=== PATIENT | female | born 1985 | race Caucasian/White ===

== ENCOUNTER 2017-03-11 13:02 | Emergency (ER) | payer SELFPAY ==
[2017-03-11 13:44] VITALS: TEMP 97.8
--- NOTE | 2017-03-11 13:49 | ED.PDOC ---
History of Present Illness - General Chief Complaint: General Stated Complaint: Dizziness, blurred vision Time Seen by Provider: 03/11/17 13:08 Source: patient, RN notes reviewed, Vital Signs reviewed Exam Limitations: no limitations - History of Present Illness Initial Comments: Patient here with multiple complaints. She reports a couple years ago she had a TV fall on the L side of her head. Did not get a CT scan at that time. Over the past 6 months she reports pressure in the L parietal area of her head with occasional brief sharp pains. She also reports vertigo and problems with her equilibrium that she takes 3 OTC Meclazine for this daily. She is having numbness on her whole R side. She is also having blurry vision that seems to be getting worse. She is c/o frequent, brief (1-5 seconds) shaking episodes. Finally, she feels that she is having a hard time controlling her muscles on the right side. She does not have a PCP and has not seen anyone about these symptoms over the past 6 months that she has been having these symptoms. Timing/Duration: getting worse - over past 6 months Severity: moderate Improving Factors: nothing Worsening Factors: nothing Associated Symptoms: headaches, weakness Allergies/Adverse Reactions: Allergies NO KNOWN ALLERGY Allergy (Verified 03/11/17 13:45) Home Medications: Ambulatory Orders Meclizine HCl [Meclizine 25] 25 mg PO DAILY 03/11/17 Vit W/ Ferrous Fumara [One A Day Womens 28-0.8 & 223 mg] 1 mis PO DAILY 03/11/17 Review of Systems - Review of Systems Constitutional: States: no symptoms reported EENTM: States: no symptoms reported Respiratory: States: no symptoms reported Cardiology: States: no symptoms reported Gastrointestinal/Abdominal: States: no symptoms reported Musculoskeletal: States: see HPI Skin: States: no symptoms reported Neurological: States: see HPI, headache, numbness, tremors, weakness Endocrine: States: no symptoms reported Hematologic/Lymphatic: States: no symptoms reported Past Medical History (General) - Patient Medical History Hx Seizures: No Hx Stroke: No Hx Dementia: No Hx Asthma: No Hx of COPD: No Hx Cardiac Disorders: No Hx Congestive Heart Failure: No Hx Pacemaker: No Hx Hypertension: No Hx Thyroid Disease: No Hx Diabetes: No Hx Gastroesophageal Reflux: No Hx Renal Disease: No Hx Cancer: No Hx of HIV: No Hx Hepatitis C: No Hx MRSA: No Surgical History: cholecystectomy - Vaccination History Hx Tetanus, Diphtheria Vaccination: Yes Hx Influenza Vaccination: No Hx Pneumococcal Vaccination: No Immunizations Up to Date: No - Social History Hx Tobacco Use: No Hx Chewing Tobacco Use: No Hx Alcohol Use: No Hx Substance Use: No Hx Substance Use Treatment: No Hx Depression: No Feels Threatened In Home Enviroment: No Feels Threatened In a Relationship: No Hx Physical Abuse: No Hx Emotional Abuse: No Hx Suspected Abuse: No - Female History Patient is a Female of Child Bearing Age (10 -59 yrs old): Yes Patient : No Expected Date of Delivery:: 01/11/16 Family Medical History - Family History Mother Family History: No Known Living Status: Still Living Physical Exam - Physical Exam General Appearance: Alert, Anxious, No apparent distress, Well Developed, Well Groomed, Well Hydrated, Well Nourished Eye Exam: bilateral normal Ears, Nose, Throat: hearing grossly normal, normal pharynx Neck: non-tender, full range of motion, supple, normal inspection Respiratory: chest non-tender, lungs clear, normal breath sounds, no respiratory distress, no accessory muscle use Cardiovascular/Chest: regular rate, rhythm, no edema, no gallop, no JVD, no murmur Gastrointestinal/Abdominal: normal bowel sounds, non tender, soft Extremity: normal range of motion, non-tender, normal inspection, no pedal edema Neurologic: machinist set up II-XII nml as tested, alert, normal mood/affect, oriented x 3, motor weakness - R leg - with hip flexion, sensory deficit - Decreased sensation to light touch R arm and leg Skin Exam: normal color, warm/dry Progress - Progress Progress: 03/11/17 15:04 Discussed normal results with patient. Given that she is having multiple neurological complaints she needs to follow up with a Neurologist. - Results/Orders Results/Orders: Laboratory Tests 03/11/17 03/11/17 14:08 14:08 WBC 7.0 RBC 4.59 Hgb 13.2 Hct 38.3 MCV 83.5 MCH 28.8 MCHC 34.5 RDW 13.1 Plt Count 222 MPV 7.4 Absolute Neuts (auto) 4.00 Absolute Lymphs (auto) 2.00 Absolute Monos (auto) 0.60 Absolute Eos (auto) 0.20 Absolute Basos (auto) 0.10 Neutrophils % 58.0 Lymphocytes % 29.3 Monocytes % 8.4 Eosinophils % 3.4 Basophils % 0.9 Sodium 140 Potassium 4.0 Chloride 108 Carbon Dioxide 26 Anion Gap 10.0 L BUN 22 H Creatinine 0.75 BUN/Creatinine Ratio 29.3 H Random Glucose 109 H Serum Osmolality 283.3 Calcium 9.0 Total Bilirubin 0.6 AST 16 ALT 13 Alkaline Phosphatase 48 Serum Total Protein 7.6 Albumin 4.2 Globulin 3.4 Albumin/Globulin Ratio 1.2 - EKG/XRAY/CT CT Ordered: Yes - Head: No acute findings Departure - Departure Clinical Impression: Numbness on right side, Blurry vision, bilateral Headache Qualifiers: Headache type: post-traumatic Headache chronicity pattern: chronic headache Intractability: not intractable Qualified Code(s): G44.329 - Chronic post- traumatic headache, not intractable Time of Disposition: 15:06 Disposition: Discharge to Home or Self Care Condition: Good Departure Forms: ED Discharge - Pt. Copy, Patient Portal Self Enrollment Instructions: DI for Headache, DI for Numbness/tingling Diet: resume usual diet Activity: increase activity as tolerated Home Medications: Ambulatory Orders Meclizine HCl [Meclizine 25] 25 mg PO DAILY 03/11/17 Vit W/ Ferrous Fumara [One A Day Womens 28-0.8 & 223 mg] 1 mis PO DAILY 03/11/17 Additional Instructions: Get primary care physician and get referral to Neurologist - can go through [place] for this or a private physician.
--- NOTE | 2017-03-11 14:39 | CT ---
EXAM DESCRIPTION: Head w/Contrast CLINICAL HISTORY: 31 years, Female, L parietal CARBAJAL with blurry vision COMPARISON: None TECHNIQUE: Head CT was performed with IV contrast. This exam was performed according to our departmental dose-optimization program, which includes automated exposure control, adjustment of the mA and/or kV according to patient size and/or use of iterative reconstruction technique. FINDINGS: Sensitivity for detection of intracranial hemorrhage is limited by IV contrast, but no acute intracranial hemorrhage is identified. There is no midline shift or other mass effect. The ventricles and basilar cisterns are well maintained. No posterior fossa lesion. Serna-white matter differentiation is intact. Physiologic vascular enhancement is noted. Visualized paranasal sinuses and orbits are unremarkable. There is no calvarial fracture. IMPRESSION: Negative exam. If symptoms persist or worsen, followup head CT in 24 hr or MRI is recommended. Electronically signed by: Keven Willingham MD 03/11/2017 2:39 PM CDT
[2017-03-11 15:15] VITALS: BP 116/79; O2SAT 95
== END 2017-03-11 15:15 | disposition home or self-care (01) ==
LOC: ER 13:02
DX: G44.329 Chronic post-traumatic headache, not intractable (principal); R20.0 Anesthesia of skin; H53.8 Other visual disturbances

== ENCOUNTER 2018-01-29 17:50 | Emergency (ER) | payer SELFPAY ==
[2018-01-29 18:13] VITALS: BP 133/85; TEMP 97.2; O2SAT 100
--- NOTE | 2018-01-29 18:23 | ED.PDOC ---
History of Present Illness - General Chief Complaint: Behavioral / Psych Stated Complaint: anxiety Time Seen by Provider: 01/29/18 18:08 Source: patient Exam Limitations: no limitations - History of Present Illness Initial Comments: The patient is a 32-year-old female presenting to the emergency room secondary to a feeling of shortness of breath, chest discomfort, tingling in her face and hands while she was driving. This occurred after she had just gotten off the phone and discovered that she did not have insurance to get her LEEP procedure done. The patient has recently lost her to cancer. The patient felt overwhelmed and has been crying. She is also concerned because she is feeling a lump under her right jaw that has been there for a week or so. Her of lymphoma so she is concerned about that. She is feeling better since she arrived here. Timing/Duration: unsure Severity: moderate Improving Factors: nothing Worsening Factors: nothing Associated Symptoms: denies symptoms Allergies/Adverse Reactions: Allergies Narcotics Adverse Reaction (Uncoded 01/29/18 18:06) Home Medications: Ambulatory Orders NK [NK] 01/29/18 Review of Systems - Review of Systems Constitutional: States: no symptoms reported EENTM: States: no symptoms reported Respiratory: States: short of breath Cardiology: States: chest pain Gastrointestinal/Abdominal: States: no symptoms reported Genitourinary: States: no symptoms reported Musculoskeletal: States: no symptoms reported Skin: States: no symptoms reported Neurological: States: anxiety Endocrine: States: no symptoms reported All other Systems: No Change from Baseline Past Medical History (General) - Patient Medical History Hx Seizures: No Hx Stroke: No Hx Dementia: No Hx Asthma: No Hx of COPD: No Hx Cardiac Disorders: No Hx Congestive Heart Failure: No Hx Pacemaker: No Hx Hypertension: No Hx Thyroid Disease: No Hx Diabetes: No Hx Gastroesophageal Reflux: No Hx Renal Disease: No Hx Cancer: Yes - Cervical Hx of HIV: No Hx Hepatitis C: No Hx MRSA: No Surgical History: cholecystectomy - Vaccination History Hx Tetanus, Diphtheria Vaccination: No Hx Influenza Vaccination: No Hx Pneumococcal Vaccination: No - Social History Hx Tobacco Use: No Hx Chewing Tobacco Use: No Hx Alcohol Use: No Hx Substance Use: Yes - Marijuana Hx Substance Use Treatment: No Hx Depression: No Hx Physical Abuse: No Hx Emotional Abuse: No Hx Suspected Abuse: No - Female History Patient is a Female of Child Bearing Age (10 -59 yrs old): Yes - very irregular Patient : No Expected Date of Delivery:: 01/11/16 Family Medical History - Family History Mother Family History: No Known Living Status: Still Living Physical Exam - Physical Exam General Appearance: Alert, Anxious Eye Exam: bilateral normal Ears, Nose, Throat: hearing grossly normal, normal ENT inspection, other - she does have a small anterior submandibular lymph node that appears to be mildly enlarged. Neck: full range of motion, supple Respiratory: lungs clear, normal breath sounds, no respiratory distress, no accessory muscle use Cardiovascular/Chest: normal peripheral pulses, regular rate, rhythm, no edema Peripheral Pulses: radial,right: 2+, radial,left: 2+ Gastrointestinal/Abdominal: non tender, soft Rectal Exam: deferred Back Exam: normal inspection, no CVA tenderness Extremity: normal range of motion, non-tender, normal inspection, no pedal edema , normal capillary refill Neurologic: hiv counselor II-XII nml as tested, alert, oriented x 3 Skin Exam: normal color Comments: Vital Signs - 8 hr 01/29/18 18:02 Temperature 97.2 F L Pulse Rate [ 72 Left Brachial] Respiratory 18 Rate Blood Pressure 133/85 [Left Arm] O2 Sat by Pulse 100 Oximetry Progress - Progress Progress: 01/29/18 18:23 the patient's a 32-year-old female presenting with what is most likely an anxiety attack related to recent stressors. The patient is feeling better after resting for a little while. She also has a mildly enlarged right sided submandibular lymph node which she does need to follow and make sure that it is shrinking over the next month. 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 ER warnings were given. She should follow up with her primary care doctor next week. Keep well hydrated. Departure - Departure Clinical Impression: Submandibular lymphadenopathy, Anxiety attack Disposition: Discharge to Home or Self Care Condition: Fair Departure Forms: ED Discharge - Pt. Copy, Patient Portal Self Enrollment Instructions: Anxiety and Panic Attacks (Alternative Therapy), DI for Lymphadenopathy Diet: regular diet Activity: increase activity as tolerated Referrals: Martinez Alcaraz MD [Primary Care Provider] - 1-2 Weeks Home Medications: Ambulatory Orders NK [NK] 01/29/18 Additional Instructions: the patient's a 32-year-old female presenting with what is most likely an anxiety attack related to recent stressors. The patient is feeling better after resting for a little while. She also has a mildly enlarged right sided submandibular lymph node which she does need to follow and make sure that it is shrinking over the next month. 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 ER warnings were given. She should follow up with her primary care doctor next week. Keep well hydrated.
== END 2018-01-29 18:36 | disposition home or self-care (01) ==
LOC: ER 17:50
DX: R59.0 Localized enlarged lymph nodes (principal); F41.0 Panic disorder [episodic paroxysmal anxiety]; Z85.41 Personal history of malignant neoplasm of cervix uteri

== ENCOUNTER 2018-04-30 11:48 | Emergency (ER) | payer SELFPAY ==
[2018-04-30 12:09] VITALS: O2SAT 98
[2018-04-30] MEDS ORDERED: MORPHINE SULFATE INJ 10 MG/ML VIAL IV ONE ×2 (12:45→16:06)
[2018-04-30] MEDS ORDERED: diphenhydrAMINE HCL 50 MG/ML VIAL ONE (13:29)
[2018-04-30] MEDS ORDERED: diphenhydrAMINE HCL 50 MG/ML VIAL IV ONE (13:40)
--- NOTE | 2018-04-30 13:59 | ED.PDOC ---
History of Present Illness - General Chief Complaint: APPEALS ANALYST Problem Stated Complaint: rt lower quad pain. Vag bleeding Time Seen by Provider: 04/30/18 12:16 Source: patient Exam Limitations: no limitations - History of Present Illness Initial Comments: THIS AM BLOWER BLAST FURNACE, 7/10 PAIN, RLQ. BLOOD AND TISSUE EXTRUDED FROM VAGINA. LMP 4 D AGO. HAD BEEN CLEAR PAST 2 D. YESTERDAY = CRAMPS . TODAY = HARD, BLACK SUBSTANCE THAT PASSED AND FELL INTO TOILET; IT DIDN'T DISSOLVE IN TOILET LIKE A BLOOD CLOT WOULD. NOW RLQ THROBBING PAIN. STILL HAS APPENDIX. Timing/Duration: this morning Quality: severe Onset Location: RLQ, vaginal Radiation: RLQ Activites at Onset: none Prior abdominal problems: none Improving Factors: nothing Worsening Factors: nothing Allergies/Adverse Reactions: Allergies Narcotics Adverse Reaction (Uncoded 04/30/18 13:40) Causes ithing and flushing Home Medications: Ambulatory Orders Acetaminophen W/ Codeine [Tylenol W/ CODEINE #3] 1 ea PO Q6H PRN #30 04/30/18 Review of Systems - Review of Systems Constitutional: Denies: chills, fever, weakness EENTM: States: no symptoms reported Respiratory: States: no symptoms reported Cardiology: States: no symptoms reported Gastrointestinal/Abdominal: States: see HPI, abdominal pain. Denies: constipation, diarrhea, nausea, vomiting Genitourinary: States: discharge, pain. Denies: dysuria, frequency, hematuria Musculoskeletal: States: no symptoms reported Skin: States: no symptoms reported Neurological: States: no symptoms reported Endocrine: States: no symptoms reported Hematologic/Lymphatic: States: no symptoms reported All other Systems: Reviewed and Negative Past Medical History (General) - Patient Medical History Hx Seizures: No Hx Stroke: No Hx Dementia: No Hx Asthma: No Hx of COPD: No Hx Cardiac Disorders: No Hx Congestive Heart Failure: No Hx Pacemaker: No Hx Hypertension: No Hx Thyroid Disease: No Hx Diabetes: No Hx Gastroesophageal Reflux: No Hx Renal Disease: No Hx Cancer: Yes - Cervical Hx of HIV: No Hx Hepatitis C: No Hx MRSA: No Surgical History: other - Vaccination History Hx Tetanus, Diphtheria Vaccination: Yes Hx Influenza Vaccination: Yes - 2017 Hx Pneumococcal Vaccination: Yes Immunizations Up to Date: Yes - Social History Hx Tobacco Use: Yes Hx Chewing Tobacco Use: No Hx Alcohol Use: No Hx Substance Use: Yes - Marijuana Hx Substance Use Treatment: No Hx Depression: No Hx Physical Abuse: No Hx Emotional Abuse: No Hx Suspected Abuse: No - Activities of Daily Living Hospice Agency (if applicable):: None - Female History Patient is a Female of Child Bearing Age (10 -59 yrs old): Yes Hx Last Menstrual Period: 04/24/18 Patient : No Expected Date of Delivery:: 01/11/16 Family Medical History - Family History Mother Family History: No Known Living Status: Still Living Physical Exam - Physical Exam General Appearance: Alert, Well Nourished Eyes, Ears, Nose, Throat Exam: PERRL/EOMI, normal ENT inspection Neck: full range of motion, normal inspection Cardiovascular/Respiratory: regular rate, rhythm, no M/R/G Gastrointestinal/Abdominal: normal bowel sounds, soft, no organomegaly, no pulsatile mass, other - NO G/R. RLQ TTP AT MCBURNEY'S POINT. R CVA TTP. Pelvic Exam: external exam normal, discharge - WHITISH-CARMEN, tender w/ cervical motion - R VAGINAL WALL TTP. , other - ODIFEROUS. VAGINA NL INSPECTION, NO BLOOD. Back Exam: normal inspection, CVA tenderness (R) Extremity: normal range of motion, normal inspection Neurologic: alert, normal mood/affect Skin Exam: normal color, warm/dry Lymphatic: no adenopathy Progress - Progress Progress: 04/30/18 16:18 W/U NEG FOR PT'S RLQ PAIN. HCG, UA, CBC, CMP NEG. NEG BV AND TRICH. G/C AND CHLAMYDIA ARE SEND OUTS. CT NEG FOR APPENDICITIS OR OTHER RLQ PATHOLOGY. 1 CM R LIVER LESION, REC'S NON- EMERGENT OUTPT F/U CT AND U/S. I EXPLAINED THIS TO PT AND SHE WILL F/U W/ PCP ( HER OB) FOR FURTHER TESTING. HE WILL ALSO BE ABLE TO SEE HER G/C CHLAMYDIA RESULTS SINCE IT IS A SEND OUT. I SUSPECT PT HAD A RETAINED TAMPON WHICH FITS CLINICALLY WITH CRAMPING, EXPULSION OF HARD, BLACK/BLOODY OBJECT 4 D AFTER MENSES, AND THEN NO FURTHER VAG BLEEDING UPON EXAM TODAY. 04/30/18 16:22 04/30/18 16:23 - EKG/XRAY/CT CT Ordered: Yes Departure - Departure Clinical Impression: RLQ abdominal pain, Vaginal bleeding, Liver lesion, right lobe Disposition: Discharge to Home or Self Care Condition: Good Departure Forms: ED Discharge - Pt. Copy, Patient Portal Self Enrollment Instructions: DI for Vaginal Bleeding Diet: resume usual diet Activity: increase activity as tolerated Referrals: Martinez Alcaraz MD [Primary Care Provider] - 1 Week Prescriptions: Acetaminophen W/ Codeine [Tylenol W/ CODEINE #3] 1 ea PO Q6H PRN #30 PRN Reason: Pain Home Medications: Ambulatory Orders Acetaminophen W/ Codeine [Tylenol W/ CODEINE #3] 1 ea PO Q6H PRN #30 04/30/18
--- NOTE | 2018-04-30 14:59 | CT ---
EXAM DESCRIPTION: Abdomen/Pelvis w/Contrast: Computed Tomography. CLINICAL HISTORY: Acute RLQ pain McBurney's, acute vaginal bleed. COMPARISON: None. TECHNIQUE: Spiral-axial scans at 5.0 mm intervals through the abdomen and pelvis, after nonionic IV contrast and water-soluble oral contrast. Coronal and sagittal 2.0 mm reconstructions. Delayed scans, liver through the pelvis. Axial-spiral 5mm. No adverse reactions. Total Exam DLP: 1426.85 mGy-cm. This exam was performed according to our departmental dose-optimization program which includes automated exposure control, adjustment of the mA and/or kV according to patient size and/or use of iterative reconstruction technique; to reduce radiation dose to as low as reasonably achievable (ALARA). FINDINGS: Small Bowel: Normal caliber with intermittent fluid and gas but no obstruction or air-fluid levels. Terminal Ileum/Cecum: Appendix is well demonstrated containing gas with normal caliber and wall thickness. Normal caliber of the TI and cecum. Normal density of the surrounding fat. Colon: Negative. Pelvic Organs: Multiple bilateral ovary follicles. No free fluid. Spine and Bony Pelvis: Minimal spondylosis in the inferior segments of the thoracic spine. Abdominal Wall/Back Soft Tissues: Minimal fatty diastases above the umbilicus with mesh hernia repair superior and inferior fasteners are noted. The mass and mesenteric fat protruding into the wall defect to the posterior adipose tissue. Not containing bowel. No edema or fluid collections in the adipose tissue. Lung bases and pleura: Negative. Liver, Stomach, Spleen, Adrenal Glands: Long axis right lobe liver 19 cm. Low-density delayed enhancing lesion superior medial right hepatic lobe (axial series 2, image 17).. Near equilibrium to the surrounding liver on the delayed images (axial series 4, image 15). Overall demonstrates inhomogeneous enhancement. Spleen and stomach and adrenal glands are negative. Pancreas, Gallbladder, Ducts: Surgical clips in the gallbladder fossa with no fluid. Minimal distention of the common bile duct. Pancreas negative. Kidneys and Ureters: Small cysts right kidney. Left kidney unremarkable. Mesentery: No fatty stranding or fluid collection in the right lower quadrant or elsewhere in the peritoneum. No free air. Aorta: Unremarkable. IMPRESSION: 1. No mass fluid collection or inflammatory lesion in the right lower quadrant of the abdomen. Normal CT appearance of the bowel and appendix. Bilateral ovarian follicles with no fluid in the cul-de-sac. 2. Prior supraumbilical midline hernia repair with mesh. The mesh extends through the abdominal wall defect to the posterior aspect of the subcutaneous adipose layer. No bowel entrapment. 3. 1 cm low-density lesion in the superior medial right hepatic lobe. This is a nonspecific finding. Inhomogeneous enhancement of the entire liver. Right lobe is enlarged. No ascites. Consider follow-up, NON-EMERGENT, hepatic ultrasound, and triple phase pre- and post-IV contrast CT scan of the liver or MRI liver without and with gadolinium IV contrast Electronically signed by: Julio César Koo MD 04/30/2018 2:57 PM CDT
[2018-04-30 17:06] VITALS: BP 115/80; TEMP 97.5
== END 2018-04-30 16:54 | disposition home or self-care (01) ==
LOC: ER 11:48
DX: N93.9 Abnormal uterine and vaginal bleeding, unspecified (principal); R10.31 Right lower quadrant pain; K76.9 Liver disease, unspecified; Z85.41 Personal history of malignant neoplasm of cervix uteri; Z87.891 Personal history of nicotine dependence; Z88.5 Allergy status to narcotic agent
CPT/HCPCS: 36415; 74177; 80053; 81001; 84703; 85025; 87210; 87491; 87591; J1200; J2270

== ENCOUNTER 2018-11-18 16:21 | Emergency (ER) | payer SELFPAY ==
[2018-11-18 17:01] VITALS: O2SAT 99
--- NOTE | 2018-11-18 17:04 | ED.PDOC ---
History of Present Illness - General Chief Complaint: ENT Problem Stated Complaint: L ear pain Time Seen by Provider: 11/18/18 16:29 Source: patient Exam Limitations: no limitations - History of Present Illness Timing/Duration: 1 week Severity: moderate Improving Factors: nothing Worsening Factors: nothing Allergies/Adverse Reactions: Allergies Penicillins Allergy (Verified 06/18/18 11:11) Narcotics Adverse Reaction (Uncoded 04/30/18 13:40) Causes ithing and flushing Home Medications: Ambulatory Orders Acetaminophen W/ Codeine [Tylenol W/ CODEINE #3] 1 ea PO Q6H PRN #30 04/30/18 Docusate Sodium [Colace Cap] 100 mg PO BID #14 cap 06/18/18 Nitrofurantoin Monohydrate Mac [Macrobid] 100 mg PO BID #14 capsule 06/18/18 Azithromycin Tab [Zithromax Tab] 250 mg PO QDAC #6 tab 11/18/18 Mometasone Furoate (Nasal) [Nasonex] 50 mcg NA QDAC #1 spr 11/18/18 Tramadol HCl 50 mg PO Q4HR PRN #15 tab 11/18/18 Review of Systems - Review of Systems Constitutional: Denies: chills, fever EENTM: States: ear pain, nose congestion. Denies: throat pain Respiratory: States: no symptoms reported Cardiology: States: no symptoms reported Gastrointestinal/Abdominal: States: no symptoms reported Genitourinary: States: no symptoms reported Past Medical History (General) - Patient Medical History Hx Seizures: No Hx Stroke: No Hx Dementia: No Hx Asthma: No Hx of COPD: No Hx Cardiac Disorders: No Hx Congestive Heart Failure: No Hx Pacemaker: No Hx Hypertension: No Hx Thyroid Disease: No Hx Diabetes: No Hx Gastroesophageal Reflux: No Hx Renal Disease: No Hx Cancer: Yes - Cervical Hx of HIV: No Hx Hepatitis C: No Hx MRSA: No Surgical History: cholecystectomy, other - Vaccination History Hx Tetanus, Diphtheria Vaccination: Yes Hx Influenza Vaccination: Yes - 2017 Hx Pneumococcal Vaccination: Yes - Social History Hx Tobacco Use: Yes Hx Chewing Tobacco Use: No Hx Alcohol Use: No Hx Substance Use: Yes - Marijuana Hx Substance Use Treatment: No Hx Depression: No Hx Physical Abuse: No Hx Emotional Abuse: No Hx Suspected Abuse: No - Female History Hx Last Menstrual Period: 04/24/18 Patient : No Expected Date of Delivery:: 01/11/16 Family Medical History - Family History Mother Family History: No Known Living Status: Still Living Physical Exam - Physical Exam General Appearance: Alert, Obvious distress Eye Exam: bilateral normal Ears, Nose, Throat: normal ENT inspection, normal pharynx Neck: lymphadenopathy (L) Departure - Departure Clinical Impression: Lymphadenopathy of head and neck Disposition: Discharge to Home or Self Care Condition: Fair Departure Forms: ED Discharge - Pt. Copy, Patient Portal Self Enrollment Instructions: DI for Ear Pain-Adult Referrals: Martinez Alcaraz MD [Primary Care Provider] - 1-2 Weeks Prescriptions: Tramadol HCl 50 mg PO Q4HR PRN #15 tab PRN Reason: Moderate Pain Azithromycin Tab [Zithromax Tab] 250 mg PO QDAC #6 tab Mometasone Furoate (Nasal) [Nasonex] 50 mcg NA QDAC #1 spr Home Medications: Ambulatory Orders Acetaminophen W/ Codeine [Tylenol W/ CODEINE #3] 1 ea PO Q6H PRN #30 04/30/18 Docusate Sodium [Colace Cap] 100 mg PO BID #14 cap 06/18/18 Nitrofurantoin Monohydrate Mac [Macrobid] 100 mg PO BID #14 capsule 06/18/18 Azithromycin Tab [Zithromax Tab] 250 mg PO QDAC #6 tab 11/18/18 Mometasone Furoate (Nasal) [Nasonex] 50 mcg NA QDAC #1 spr 11/18/18 Tramadol HCl 50 mg PO Q4HR PRN #15 tab 11/18/18
[2018-11-18 17:19] VITALS: BP 123/72; TEMP 98.1
== END 2018-11-18 17:18 | disposition home or self-care (01) ==
LOC: ER 16:21
DX: R59.0 Localized enlarged lymph nodes (principal); H92.02 Otalgia, left ear; Z85.41 Personal history of malignant neoplasm of cervix uteri; Z87.891 Personal history of nicotine dependence; Z88.0 Allergy status to penicillin; Z88.5 Allergy status to narcotic agent

== ENCOUNTER 2019-09-25 16:40 | Emergency (ER) | payer SELFPAY ==
[2019-09-25 17:13] VITALS: TEMP 98.6
[2019-09-25] MEDS ORDERED: SODIUM CHLORIDE 0.9% 1000ML 1,000 ML IVS ONE (17:57)
--- NOTE | 2019-09-25 18:02 | RAD ---
EXAM DESCRIPTION: Abdomen Series CLINICAL HISTORY: rlq pain COMPARISON: None Available. TECHNIQUE: PA chest with supine and upright views of the abdomen] FINDINGS: The lungs are clear. The heart is normal size. There is an unremarkable bowel gas pattern. There is no mass or calculus. There is evidence of prior midline abdominal hernia repair. Surgical clips are seen in the right upper quadrant consistent with prior cholecystectomy. IMPRESSION: Postsurgical changes are observed. The exam is otherwise unremarkable. Electronically signed by: Julien Woo MD 09/25/2019 6:00 PM CHIEF HYDROELECTRIC STATION OPERATOR
[2019-09-25] MEDS ORDERED: BUTORPHANOL TARTRATE 2 MG/ML VIAL IV ONE (18:03)
[2019-09-25] MEDS ORDERED: ONDANSETRON INJ 4 MG/2 ML VIAL IV ONE (18:27)
[2019-09-25] MEDS ORDERED: diphenhydrAMINE HCL 50 MG/ML VIAL ONE (18:31)
[2019-09-25] MEDS ORDERED: diphenhydrAMINE HCL 50 MG/ML VIAL IV ONE (18:39)
--- NOTE | 2019-09-25 19:09 | CT ---
EXAM: Abdomen/Pelvis w/Contrast CLINICAL INDICATION: Right lower quadrant abdominal pain COMPARISON: 06/18/2018 TECHNIQUE: The CT scan was done using contiguous axial 5 mm postcontrast sections through the abdomen and pelvis including IV contrast. This exam was performed according to our departmental dose-optimization program, which includes automated exposure control, adjustment of the mA and/or kV according to patient size and/or use of iterative reconstruction technique. FINDINGS: The visualized portions of the lung bases contain areas of mild subsegmental atelectasis but are otherwise clear. The gallbladder is surgically absent. The liver, kidneys, adrenal glands, spleen, and pancreas have a normal CT appearance. The aorta is normal in caliber. The appendix is normal. There aren't dilated loops of small bowel. There is no free air, free fluid, or abscess. Surgical changes are noted in the anterior abdominal wall. IMPRESSION: No evidence of an acute intra-abdominal process. Electronically signed by: Venkatesh Yates MD 09/25/2019 7:08 PM AUTHOR AGENT
[2019-09-25] MEDS ORDERED: CIPROFLOXACIN 500 MG TAB PO ONE (19:22)
[2019-09-25] MEDS ORDERED: cefTRIAXone SODIUM 1 GM in SODIUM CHL 0.9% 50ML MIN-BAG+ 50 ML IVPB ONE (19:22)
--- NOTE | 2019-09-25 19:24 | ED.PDOC ---
History of Present Illness - General Chief Complaint: GI Problem Time Seen by Provider: 09/25/19 16:47 Source: patient Exam Limitations: no limitations - History of Present Illness Initial Comments: the patient is a 34-year-old female presenting to the emergency room secondary to right lower quadrant pain that has been present for the last 4 days. She has had some mild nausea but no vomiting. She has been having bowel movements. No syncope or near-syncope. No chest pain. No fever. No diarrhea. She does have tenderness to palpation in the right lower quadrant. No definite rebound or peritoneal signs. She denies any vaginal discharge or pain with intercourse. No urinary symptoms. Timing/Duration: other - 4 days Severity: moderate - worse with movement Improving Factors: immobilization Worsening Factors: movement Associated Symptoms: nausea/vomiting Allergies/Adverse Reactions: Allergies Penicillins Allergy (Verified 06/18/18 11:11) Narcotics Adverse Reaction (Uncoded 04/30/18 13:40) Causes ithing and flushing Home Medications: Ambulatory Orders Ciprofloxacin [Cipro] 500 mg PO BID #14 tab 09/25/19 Metronidazole 500 mg PO TID #15 tab 09/25/19 Ondansetron Odt [Zofran ODT] 4 mg PO Q8HR PRN #5 tab 09/25/19 Review of Systems - Review of Systems Constitutional: States: no symptoms reported EENTM: States: no symptoms reported Respiratory: States: no symptoms reported Cardiology: States: no symptoms reported Gastrointestinal/Abdominal: States: abdominal pain, nausea, vomiting Genitourinary: States: no symptoms reported Musculoskeletal: States: no symptoms reported Skin: States: no symptoms reported Neurological: States: no symptoms reported Endocrine: States: no symptoms reported All other Systems: No Change from Baseline Past Medical History (General) - Patient Medical History Hx Seizures: No Hx Stroke: No Hx Dementia: No Hx Asthma: No Hx of COPD: No Hx Cardiac Disorders: No Hx Congestive Heart Failure: No Hx Pacemaker: No Hx Hypertension: No Hx Thyroid Disease: No Hx Diabetes: No Hx Gastroesophageal Reflux: No Hx Renal Disease: No Hx Cancer: Yes - Cervical Hx of HIV: No Hx Hepatitis C: No Hx MRSA: No - Vaccination History Hx Tetanus, Diphtheria Vaccination: Yes Hx Influenza Vaccination: Yes - 2017 Hx Pneumococcal Vaccination: Yes - Social History Hx Tobacco Use: Yes Hx Chewing Tobacco Use: No Hx Alcohol Use: No Hx Substance Use: Yes - Marijuana Hx Substance Use Treatment: No Hx Depression: No Hx Physical Abuse: No Hx Emotional Abuse: No Hx Suspected Abuse: No - Female History Hx Last Menstrual Period: 04/24/18 Patient : No Expected Date of Delivery:: 01/11/16 Family Medical History - Family History Mother Family History: No Known Living Status: Still Living Physical Exam - Physical Exam General Appearance: Alert, Comfortable, No apparent distress Eye Exam: bilateral normal Ears, Nose, Throat: hearing grossly normal, normal ENT inspection, normal pharynx Neck: full range of motion, supple Respiratory: lungs clear, normal breath sounds, no respiratory distress, no accessory muscle use Cardiovascular/Chest: normal peripheral pulses, regular rate, rhythm, no edema Peripheral Pulses: radial,right: 2+, radial,left: 2+, dorsalis pedis,right: 2+, dorsalis pedis,left: 2+ Gastrointestinal/Abdominal: soft, other - see history of present illness. No palpable mass. 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, alert, normal mood/affect, oriented x 3 Skin Exam: normal color Comments: Vital Signs - 24 hr 09/25/19 09/25/19 09/25/19 17:07 17:51 18:10 Temperature 98.6 F Pulse Rate [ 111 H 85 84 left brachial] Respiratory 20 16 18 Rate Blood Pressure 142/96 141/88 117/78 [left brachial] O2 Sat by Pulse 97 99 98 Oximetry 09/25/19 19:00 Temperature Pulse Rate [ 80 left brachial] Respiratory 16 Rate Blood Pressure 125/77 [left brachial] O2 Sat by Pulse 99 Oximetry Progress - Progress Progress: 09/25/19 19:27 the patient is a 34-year-old female presented to the emergency room secondary to 4 days of right lower abdominal pain with some nausea. the patient does appear to have a small urinary tract infection and is receiving a dose of Rocephin and ciprofloxacin for that. She'll be placed on ciprofloxacin for the next week and metronidazole for the next 5 days. She does need to keep herself well hydrated and take these medications with food. She needs to avoid alcohol intake with them. She'll be written for Zofran for as needed use to control any nausea. She can also use [id number] Pepcid to reduce any gastritis. A bland diet is recommended. Obviously if the patient is worsening then she will need a repeat evaluation. If that is the case then a pelvic ultrasound could also be considered at that time. Blood work is reassuring along with the CT scan. the right lower quadrant abdominal pain may be from the urinary tract infection, it may also be from abdominal wall strain, and even very early appendicitis cannot definitively be ruled out at this point, though not likely. ER warnings were g iven for any worsening. Follow up with primary care doctor in a couple of days. jeb cleary [phone] 09/25/19 19:30 - Results/Orders Results/Orders: CT of abdomen and pelvis felt to show any acute pathology. Appendix appears normal. No free fluid. No obstruction. No obvious new hernia. No evidence of inflammation in general. See report for details. Laboratory Results - last 24 hr 09/25/19 09/25/19 09/25/19 17:00 17:00 17:25 WBC 8.3 RBC 4.42 Hgb 13.1 Hct 38.3 MCV 86.6 MCH 29.6 MCHC 34.2 RDW 13.4 Plt Count 247 MPV 7.3 L Absolute Neuts (auto) 5.20 Absolute Lymphs (auto) 2.20 Absolute Monos (auto) 0.70 Absolute Eos (auto) 0.10 Absolute Basos (auto) 0.10 Neutrophils % 62.7 Lymphocytes % 26.8 Monocytes % 8.3 Eosinophils % 1.4 Basophils % 0.8 Sodium Potassium Chloride Carbon Dioxide Anion Gap BUN Creatinine BUN/Creatinine Ratio Random Glucose Serum Osmolality Calcium Total Bilirubin AST ALT Alkaline Phosphatase Serum Total Protein Albumin Globulin Albumin/Globulin Ratio Urine Color Yellow Urine Appearance Cloudy Urine pH 8.0 H Ur Specific [place] 1.015 Urine Protein Negative Urine Glucose (UA) Negative Urine Ketones Negative Urine Blood Negative Urine Nitrite Negative Urine Bilirubin Negative Urine Urobilinogen 0.2 Ur Leukocyte Esterase Small H Urine RBC 0-1 Urine WBC 3-5 H Ur Epithelial Cells 10-20 Amorphous Sediment 2+ Urine Bacteria 2+ H Urine HCG, Qual Negative 09/25/19 17:25 WBC RBC Hgb Hct MCV MCH MCHC RDW Plt Count MPV Absolute Neuts (auto) Absolute Lymphs (auto) Absolute Monos (auto) Absolute Eos (auto) Absolute Basos (auto) Neutrophils % Lymphocytes % Monocytes % Eosinophils % Basophils % Sodium 138 Potassium 3.7 Chloride 106 Carbon Dioxide 22 Anion Gap 13.7 BUN 19 H Creatinine 0.74 BUN/Creatinine Ratio 25.7 H Random Glucose 110 H Serum Osmolality 278.6 Calcium 9.2 Total Bilirubin 0.3 AST 20 ALT 19 Alkaline Phosphatase 45 Serum Total Protein 7.9 Albumin 4.4 Globulin 3.5 Albumin/Globulin Ratio 1.3 Urine Color Urine Appearance Urine pH Ur Specific [place] Urine Protein Urine Glucose (UA) Urine Ketones Urine Blood Urine Nitrite Urine Bilirubin Urine Urobilinogen Ur Leukocyte Esterase Urine RBC Urine WBC Ur Epithelial Cells Amorphous Sediment Urine Bacteria Urine HCG, Qual Departure - Departure Clinical Impression: Cystitis Abdominal pain Qualifiers: Abdominal location: right lower quadrant Qualified Code(s): R10.31 - Right lower quadrant pain Disposition: Discharge to Home or Self Care Condition: Fair Departure Forms: ED Discharge - Pt. Copy, Patient Portal Self Enrollment Instructions: DI for Abdominal Pain-Adult, Urinary Tract Infection, Adult (DC) Diet: bland diet, regular diet Activity: increase activity as tolerated Referrals: Martinez Alcaraz MD [Primary Care Provider] - 1-5 Days Prescriptions: Ondansetron Odt [Zofran ODT] 4 mg PO Q8HR PRN #5 tab PRN Reason: Nausea--Moderate Ciprofloxacin [Cipro] 500 mg PO BID #14 tab Metronidazole 500 mg PO TID #15 tab Home Medications: Ambulatory Orders Ciprofloxacin [Cipro] 500 mg PO BID #14 tab 09/25/19 Metronidazole 500 mg PO TID #15 tab 09/25/19 Ondansetron Odt [Zofran ODT] 4 mg PO Q8HR PRN #5 tab 09/25/19 Additional Instructions: the patient is a 34-year-old female presented to the emergency room secondary to 4 days of right lower abdominal pain with some nausea. the patient does appear to have a small urinary tract infection and is receiving a dose of Rocephin and ciprofloxacin for that. She'll be placed on ciprofloxacin for the next week and metronidazole for the next 5 days. She does need to keep herself well hydrated and take these medications with food. She needs to avoid alcohol intake with them. She'll be written for Zofran for as needed use to control any nausea. She can also use [id number] Pepcid to reduce any gastritis. A bland diet is recommended. Obviously if the patient is worsening then she will need a repeat evaluation. If that is the case then a pelvic ultrasound could also be considered at that time. Blood work is reassuring along with the CT scan. the right lower quadrant abdominal pain may be from the urinary tract infection, it may also be from abdominal wall strain, and even very early appendicitis cannot definitively be ruled out at this point, though not likely. ER warnings were given for any worsening. Follow up with primary care doctor in a couple of days.
[2019-09-25] MEDS ORDERED: cefTRIAXone SODIUM 1 GM VIAL ONE (19:31)
[2019-09-25] MEDS ORDERED: SODIUM CHL 0.9% 50ML MIN-BAG+ 50 ML IVPB ONE (19:32)
[2019-09-25 20:13] VITALS: BP 122/69; O2SAT 98
== END 2019-09-25 20:09 | disposition home or self-care (01) ==
LOC: ER 16:40
DX: N30.00 Acute cystitis without hematuria (principal); R10.31 Right lower quadrant pain; R11.0 Nausea; Z87.891 Personal history of nicotine dependence; Z85.41 Personal history of malignant neoplasm of cervix uteri
CPT/HCPCS: 74019; 74177; 80053; 81001; 81025; 85025; 87086; J0595; J0696; J1200; J2405; J7030; J7050

== ENCOUNTER 2020-07-11 14:13 | Emergency (ER) | payer SELFPAY ==
--- NOTE | 2020-07-11 15:18 | RAD ---
EXAM DESCRIPTION: Chest, x-ray 1 View CLINICAL HISTORY: cough COMPARISON: None FINDINGS: Cardiac silhouette is within normal limits. There is no focal parenchymal or pleural disease. There is no acute osseous process visualized. IMPRESSION: No evidence of acute cardiopulmonary disease. Electronically signed by: Samm Wallace MD 07/11/2020 3:16 PM CDT
[2020-07-11] MEDS ORDERED: HYDROcodone 5MG/APAP 325MG 1 EA TAB PO ONE (15:25)
[2020-07-11] MEDS ORDERED: ONDANSETRON ODT 8 MG TAB SL ONE (15:25)
--- NOTE | 2020-07-11 16:01 | ED.PDOC ---
History of Present Illness - General Chief Complaint: General Stated Complaint: congestion, body aches, fatigue, cough Time Seen by Provider: 07/11/20 14:55 Source: patient, RN notes reviewed, Vital Signs reviewed Exam Limitations: no limitations - History of Present Illness Initial Comments: Patient is a 35-year-old white female who is morbidly obese and presents with complaints of fever, body aches, sore throat and cough. This is been ongoing for 2 to 3 days. The sore throat is burning in nature. Worse with swallowing, nothing makes it better. There is no radiation of the pain. Fevers are subjective. Timing/Duration: other - 2 to 3 days Severity: moderate Improving Factors: nothing Worsening Factors: eating Associated Symptoms: cough, fever/chills, malaise Allergies/Adverse Reactions: Allergies Penicillins Allergy (Verified 06/18/18 11:11) Narcotics Adverse Reaction (Uncoded 04/30/18 13:40) Causes ithing and flushing Home Medications: Ambulatory Orders Buspirone HCl [Buspirone Hydrochloride] 7.5 mg PO DAILY 07/11/20 Clindamycin HCl 300 mg PO Q6H #40 cap 07/11/20 Cyclobenzaprine HCl [Flexeril] 10 mg PO TID #15 tab 07/11/20 Trazodone HCl [Trazodone Hydrochloride] 50 mg PO DAILY 07/11/20 Review of Systems - Review of Systems Constitutional: States: see HPI, chills, fever, malaise. Denies: weakness EENTM: States: see HPI, throat pain. Denies: eye pain, blurred vision, double vision Respiratory: States: no symptoms reported. Denies: cough, short of breath, stridor Cardiology: States: no symptoms reported. Denies: chest pain, palpitations, syncope Gastrointestinal/Abdominal: States: no symptoms reported. Denies: abdominal pain, diarrhea, nausea, vomiting Genitourinary: States: no symptoms reported. Denies: dysuria, frequency Musculoskeletal: States: see HPI, back pain. Denies: neck pain Skin: States: no symptoms reported. Denies: change in color, rash Neurological: States: no symptoms reported. Denies: headache, numbness, paresthesia, tingling, tremors, weakness Endocrine: States: no symptoms reported Hematologic/Lymphatic: States: no symptoms reported All other Systems: No Change from Baseline Past Medical History (General) - Patient Medical History Hx Seizures: No Hx Stroke: No Hx Dementia: No Hx Asthma: No Hx of COPD: No Hx Cardiac Disorders: No Hx Congestive Heart Failure: No Hx Pacemaker: No Hx Hypertension: No Hx Thyroid Disease: No Hx Diabetes: No Hx Gastroesophageal Reflux: No Hx Renal Disease: No Hx Cancer: No Hx of HIV: No Hx Hepatitis C: No Hx MRSA: No - Vaccination History Hx Tetanus, Diphtheria Vaccination: No Hx Influenza Vaccination: No Hx Pneumococcal Vaccination: No - Social History Hx Tobacco Use: Yes Hx Chewing Tobacco Use: No Hx Alcohol Use: No Hx Substance Use: Yes - Marijuana Hx Substance Use Treatment: No Hx Depression: No Hx Physical Abuse: No Hx Emotional Abuse: No Hx Suspected Abuse: No - Female History Hx Last Menstrual Period: 04/24/18 Patient : No Expected Date of Delivery:: 01/11/16 Family Medical History - Family History Mother Family History: No Known Living Status: Still Living Physical Exam - Physical Exam General Appearance: Alert, Anxious, Comfortable, Obese, Well Developed, Well Groomed, Well Hydrated, Well Nourished Eye Exam: bilateral normal Ears, Nose, Throat: hearing grossly normal, normal ENT inspection, pharyngeal erythema, tonsillar swelling Neck: non-tender, full range of motion, lymphadenopathy (R), lymphadenopathy (L) Respiratory: chest non-tender, lungs clear, normal breath sounds, no respiratory distress, no accessory muscle use Cardiovascular/Chest: normal peripheral pulses, regular rate, rhythm, no edema, no gallop, no murmur Peripheral Pulses: radial,right: 2+, radial,left: 2+ Gastrointestinal/Abdominal: normal bowel sounds, non tender, soft, no organomegaly, no pulsatile mass Extremity: normal range of motion, normal inspection, pelvis stable, other - Tenderness to palpation on the para lumbar musculature. 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 Progress - Progress Progress: Differential diagnosis: Strep, pneumonia, viral URI, COVID among others. 07/11/20 16:09 Patient with a positive strep test. The respiratory panel is pending. Plan on discharge home at this time with a prescription for antibiotics. Patient will be called with the results of her COVID test. I discussed this plan of care with the patient she voices understanding and agreement. Anthony Saha M.D. #[id number] 07/11/20 16:32 Patient given clindamycin IM and a prescription for clindamycin for strep throat due to her allergy to penicillin. Patient is being discharged at this time. - Results/Orders Results/Orders: EXAM DESCRIPTION: Chest, x-ray 1 View CLINICAL HISTORY: cough COMPARISON: None FINDINGS: Cardiac silhouette is within normal limits. There is no focal parenchymal or pleural disease. There is no acute osseous process visualized. IMPRESSION: No evidence of acute cardiopulmonary disease. Electronically signed by: Samm Wallace MD 07/11/2020 3:16 PM CDT 07/11/20 15:24 RESPIRATORY PANEL 2 Stat-Pending. Laboratory Results - last 24 hr 07/11/20 15:24 Group A Strep Rapid Positive H - EKG/XRAY/CT CT Ordered: No Departure - Departure Clinical Impression: Strep pharyngitis Low back strain Qualifiers: Encounter type: initial encounter Qualified Code(s): S39.012A - Strain of muscle, fascia and tendon of lower back, initial encounter Time of Disposition: 16:32 Disposition: Discharge to Home or Self Care Condition: Good Departure Forms: ED Discharge - Pt. Copy, Patient Portal Self Enrollment Instructions: Strep Throat (DC), Back Muscle Strain (DC) Diet: resume usual diet Activity: increase activity as tolerated Referrals: Martinez Alcaraz MD [Primary Care Provider] - 1-5 Days Prescriptions: Clindamycin HCl 300 mg PO Q6H #40 cap Cyclobenzaprine HCl [Flexeril] 10 mg PO TID #15 tab Home Medications: Ambulatory Orders Buspirone HCl [Buspirone Hydrochloride] 7.5 mg PO DAILY 07/11/20 Clindamycin HCl 300 mg PO Q6H #40 cap 07/11/20 Cyclobenzaprine HCl [Flexeril] 10 mg PO TID #15 tab 07/11/20 Trazodone HCl [Trazodone Hydrochloride] 50 mg PO DAILY 07/11/20
[2020-07-11] MEDS ORDERED: CLINDAMYCIN PHOSPHATE 150 MG/ML VIAL IM ONE (16:20)
[2020-07-11 16:49] VITALS: BP 125/78; TEMP 97.6; O2SAT 97
== END 2020-07-11 16:45 | disposition home or self-care (01) ==
LOC: ER 14:13
DX: J02.0 Streptococcal pharyngitis (principal); S39.012A Strain of muscle, fascia and tendon of lower back, initial encounter; E66.01 Morbid (severe) obesity due to excess calories; Z87.891 Personal history of nicotine dependence; Z20.828 Contact with and (suspected) exposure to other viral communicable diseases; Z68.39 Body mass index [BMI] 39.0-39.9, adult; Z88.5 Allergy status to narcotic agent; Z88.0 Allergy status to penicillin; Z79.899 Other long term (current) drug therapy
CPT/HCPCS: 71045; 87635; 87880; J3490

== ENCOUNTER 2020-12-02 08:40 | Emergency (ER) | payer OTHER ==
--- NOTE | 2020-12-02 09:22 | ED.PDOC ---
History of Present Illness - General Chief Complaint: General Stated Complaint: cough, congestion, body aches Time Seen by Provider: 12/02/20 09:20 Source: patient Exam Limitations: no limitations Additional Information: Patient complains of feeling ill since last night. She complains of fever chills and malaise. She has a cough productive of green phlegm. She also has nasal congestion. Patient denies dyspnea. She denies chest pain.She also denies abdominal pain vomiting or diarrhea. No dysuria or frequency. Last menstrual period 19 October but the patient has had tubal ligation and does not have regular periods. - History of Present Illness Timing/Duration: 24 hours Severity: mild Improving Factors: nothing Worsening Factors: nothing Associated Symptoms: fever/chills, malaise Allergies/Adverse Reactions: Allergies Penicillins Allergy (Verified 12/02/20 08:53) Narcotics Adverse Reaction (Uncoded 12/02/20 08:53) Causes ithing and flushing Home Medications: Ambulatory Orders Buspirone HCl [Buspirone Hydrochloride] 7.5 mg PO DAILY 07/11/20 Clindamycin HCl 300 mg PO Q6H #40 cap 07/11/20 Cyclobenzaprine HCl [Flexeril] 10 mg PO TID #15 tab 07/11/20 Trazodone HCl [Trazodone Hydrochloride] 50 mg PO DAILY 07/11/20 Azithromycin [Zithromax Z-Adolfo] 250 mg PO DAILY 5 Days #6 tab MDD 500 12/02/20 Review of Systems - Review of Systems Constitutional: States: see HPI EENTM: States: nose congestion Respiratory: States: cough. Denies: short of breath Cardiology: Denies: chest pain Gastrointestinal/Abdominal: States: no symptoms reported Genitourinary: States: no symptoms reported Musculoskeletal: States: muscle pain Skin: States: no symptoms reported Neurological: States: no symptoms reported Endocrine: States: no symptoms reported Hematologic/Lymphatic: States: no symptoms reported. Denies: swollen glands All other Systems: Reviewed and Negative Past Medical History (General) - Patient Medical History Hx Seizures: No Hx Stroke: No Hx Dementia: No Hx Asthma: No Hx of COPD: No Hx Cardiac Disorders: No Hx Congestive Heart Failure: No Hx Pacemaker: No Hx Hypertension: No Hx Thyroid Disease: No Hx Diabetes: No Hx Gastroesophageal Reflux: No Hx Renal Disease: No Hx Cancer: No Hx of HIV: No Hx Hepatitis C: No Hx MRSA: No Surgical History: no surgical history - Vaccination History Hx Tetanus, Diphtheria Vaccination: No Hx Influenza Vaccination: No Hx Pneumococcal Vaccination: No - Social History Hx Tobacco Use: Yes Hx Chewing Tobacco Use: No Hx Alcohol Use: No Hx Substance Use: Yes - Marijuana Hx Substance Use Treatment: No Hx Depression: No Hx Physical Abuse: No Hx Emotional Abuse: No Hx Suspected Abuse: No - Activities of Daily Living Hospice Agency (if applicable):: None - Female History Patient is a Female of Child Bearing Age (10 -59 yrs old): No Hx Last Menstrual Period: 04/24/18 Patient : No Expected Date of Delivery:: 01/11/16 Family Medical History - Family History Mother Family History: No Known Living Status: Still Living Physical Exam - Physical Exam General Appearance: Alert, Other - Comfortable without respiratory distress in a supine position Eye Exam: bilateral normal Ears, Nose, Throat: hearing grossly normal, normal ENT inspection Neck: non-tender, full range of motion Respiratory: lungs clear, no respiratory distress Cardiovascular/Chest: normal peripheral pulses, regular rate, rhythm Gastrointestinal/Abdominal: normal bowel sounds Back Exam: normal inspection, no CVA tenderness Extremity: normal range of motion, no calf tenderness 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 12/02/20 10:22 Medical decision making: Healthy 35-year-old female with COVID-19. Patient does not have infiltrates suggesting significant pneumonia. She does not have difficulty breathing or hypoxemia. Patient is suitable for outpatient management. She Is not in a high risk category Requiring monoclonal antibody therapy. 12/02/20 10:45 No infiltrate seen By me On single view chest x-ray taken in emergency department. - Results/Orders Results/Orders: COVID-19 rapid nasal swab positive Departure - Departure Clinical Impression: COVID-19 Disposition: Discharge to Home or Self Care Condition: Good Departure Forms: ED Discharge - Pt. Copy, Patient Portal Self Enrollment Diet: regular diet Referrals: JESSICA ADAMS IV CLINICAL SERVICES ASSISTANT [Primary Care Provider] - 1-2 Weeks Prescriptions: Azithromycin [Zithromax Z-Adolfo] 250 mg PO DAILY 5 Days #6 tab MDD 500 Home Medications: Ambulatory Orders Buspirone HCl [Buspirone Hydrochloride] 7.5 mg PO DAILY 07/11/20 Clindamycin HCl 300 mg PO Q6H #40 cap 07/11/20 Cyclobenzaprine HCl [Flexeril] 10 mg PO TID #15 tab 07/11/20 Trazodone HCl [Trazodone Hydrochloride] 50 mg PO DAILY 07/11/20 Azithromycin [Zithromax Z-Adolfo] 250 mg PO DAILY 5 Days #6 tab MDD 500 12/02/20 Additional Instructions: Return immediately to the emergency department if you develop increasing difficulty breathing or feel extremely ill. Isolate yourself for at least 10 days until free of all symptoms for at least 4 days. Assume that all of your family members have Covid 19 if they develop any symptoms. Use [id number] ibuprofen and Tylenol for fever aches and chills. Robitussin DM is good for cough. If having severe runny nose use Sudafed.
[2020-12-02 10:30] VITALS: TEMP 97.5
[2020-12-02 10:31] VITALS: BP 126/84; O2SAT 96
--- NOTE | 2020-12-02 11:48 | RAD ---
Study: Single Frontal Radiograph of the Chest. Indication:CIVOD + Comparison: July 11, 2020 Impression: Heart size normal. Subtle hazy increased density lung bases which could reflect atelectasis or pneumonia. COVID-19 could give this appearance. No pleural effusion or pneumothorax. Electronically signed by: Fab Pascual MD 12/02/2020 11:46 AM [facility]
== END 2020-12-02 10:25 | disposition home or self-care (01) ==
LOC: ER 08:40
DX: U07.1 COVID-19 (principal); Z87.891 Personal history of nicotine dependence; Z88.0 Allergy status to penicillin; Z88.5 Allergy status to narcotic agent

== ENCOUNTER 2020-12-11 15:46 | Emergency (ER) | payer OTHER ==
--- NOTE | 2020-12-11 16:41 | RAD ---
EXAM DESCRIPTION: Chest,1 View CLINICAL HISTORY: covid sob COMPARISON: 12/02/2020 FINDINGS: Cardiac silhouette is within normal limits. There is no focal parenchymal or pleural disease. There is mild pulmonary edema. IMPRESSION No pulmonary opacities identified. Please note that chest radiographs have low sensitivity for subtle groundglass opacities. Mild pulmonary edema. Electronically signed by: Julio César Jerez 12/11/2020 4:39 PM [employer]LECT[employer]ING [employer]EMAN
[2020-12-11] MEDS ORDERED: ACETYLCYSTEIN 20 % 6,000 MG/30 ML VIAL PO ONE (16:56)
[2020-12-11 17:16] VITALS: O2SAT 99
--- NOTE | 2020-12-11 18:04 | CT ---
PROCEDURE: CTA Chest CLINICAL HISTORY: 35 years Female acute onset sob with covid COMPARISON: CT abdomen and pelvis study from 09/25/2019. TECHNIQUE: Contiguous axial images obtained through the chest during the infusion of IV contrast. Reformatted images obtained. MIP reformatted images obtained. This exam was performed according to our department optimization program which includes automated exposure control, adjustment of the mA and/or kv according to patient size and/or use of iterative reconstruction technique. FINDINGS: The visualized upper abdominal organs appear unremarkable. No pericardial effusion. The mediastinum appears unremarkable. No evidence for thoracic aortic dissection. The study is slightly suboptimal from motion. No definite pulmonary emboli are identified. There is mild patchy groundglass opacity at the periphery of the lung most pronounced in the inferior lungs. The findings are consistent with the clinical diagnosis of covid pneumonia. No pleural effusions. No pneumothorax. IMPRESSION: No pulmonary emboli are identified. There is mild patchy groundglass opacity at the periphery of the lungs most pronounced in the inferior lungs. The findings are consistent with the clinical diagnosis of covid pneumonia. Electronically signed by: Anthony Walsh MD 12/11/2020 6:02 PM PLANT TAXONOMIST
[2020-12-11] MEDS ORDERED: predniSONE 20 MG TAB PO ONE (18:14)
[2020-12-11] MEDS ORDERED: APIXABAN 5 MG TAB PO ONE (18:14)
[2020-12-11] MEDS ORDERED: AZITHROMYCIN 250 MG TAB PO ONE ×2 (18:14→18:18)
--- NOTE | 2020-12-11 18:20 | ED.PDOC ---
History of Present Illness - General Chief Complaint: Respiratory Problem Stated Complaint: shortness of breath Time Seen by Provider: 12/11/20 15:51 Source: patient Exam Limitations: no limitations - History of Present Illness Initial Comments: The patient is a 35-year-old female presented emergency room secondary to fairly acute onset shortness of breath today about an hour prior to arrival. Upon arrival the patient is obviously hyperventilating and very anxious. She was diagnosed with coronavirus about a week ago. She has been doing fairly well with it up until today. Oxygen saturations are 99 to 100% on room air. Lung ray are essentially clear. No nausea or vomiting. Questionable fevers. No syncope. No real chest pain. She just felt like all of a sudden she could not breathe. She does have very mild rales at bilateral bases posteriorly only. No evidence of arrhythmia on telemetry. Symptoms stopped as soon as the patient was made to stop hyperventilating. Timing/Duration: 1 hour Severity: severe Improving Factors: nothing Worsening Factors: nothing Associated Symptoms: cough, shortness of breath Allergies/Adverse Reactions: Allergies Penicillins Allergy (Verified 12/02/20 08:53) Narcotics Adverse Reaction (Uncoded 12/02/20 08:53) Causes ithing and flushing Home Medications: Ambulatory Orders Buspirone HCl [Buspirone Hydrochloride] 7.5 mg PO DAILY 07/11/20 Clindamycin HCl 300 mg PO Q6H #40 cap 07/11/20 Cyclobenzaprine HCl [Flexeril] 10 mg PO TID #15 tab 07/11/20 Trazodone HCl [Trazodone Hydrochloride] 50 mg PO DAILY 07/11/20 Azithromycin [Zithromax Z-Adolfo] 250 mg PO DAILY 5 Days #6 tab MDD 500 12/02/20 Apixaban [Eliquis] 5 mg PO BID #42 tab 12/11/20 Azithromycin 500 mg PO DAILY #5 tab 12/11/20 predniSONE [Prednisone] 20 mg PO DAILY #7 tab 12/11/20 Review of Systems - Review of Systems Constitutional: States: malaise EENTM: States: nose congestion Respiratory: States: cough, short of breath Cardiology: States: no symptoms reported Gastrointestinal/Abdominal: States: no symptoms reported Genitourinary: States: no symptoms reported Musculoskeletal: States: no symptoms reported Skin: States: no symptoms reported Neurological: States: no symptoms reported Endocrine: States: no symptoms reported All other Systems: No Change from Baseline Past Medical History (General) - Patient Medical History Hx Seizures: No Hx Stroke: No Hx Dementia: No Hx Asthma: No Hx of COPD: No Hx Cardiac Disorders: No Hx Congestive Heart Failure: No Hx Pacemaker: No Hx Hypertension: No Hx Thyroid Disease: No Hx Diabetes: No Hx Gastroesophageal Reflux: No Hx Renal Disease: No Hx Cancer: No Hx of HIV: No Hx Hepatitis C: No Hx MRSA: No Surgical History: cholecystectomy - Vaccination History Hx Tetanus, Diphtheria Vaccination: No Hx Influenza Vaccination: No Hx Pneumococcal Vaccination: No - Social History Hx Tobacco Use: Yes Hx Chewing Tobacco Use: No Hx Alcohol Use: No Hx Substance Use: Yes - Marijuana Hx Substance Use Treatment: No Hx Depression: No Hx Physical Abuse: No Hx Emotional Abuse: No Hx Suspected Abuse: No - Female History Hx Last Menstrual Period: 04/24/18 Patient : No Expected Date of Delivery:: 01/11/16 Family Medical History - Family History Mother Family History: No Known Living Status: Still Living Physical Exam - Physical Exam General Appearance: Alert, Anxious Eye Exam: bilateral normal Ears, Nose, Throat: hearing grossly normal, normal pharynx Neck: full range of motion, supple Respiratory: normal breath sounds, no respiratory distress, no accessory muscle use, rales - Bibasilar posteriorly Cardiovascular/Chest: normal peripheral pulses, regular rate, rhythm, no edema Peripheral Pulses: radial,right: 2+, radial,left: 2+ Gastrointestinal/Abdominal: non tender - Obese, soft Rectal Exam: deferred Back Exam: no CVA tenderness, no vertebral tenderness Extremity: normal range of motion, non-tender, normal inspection, no pedal edema, normal capillary refill Neurologic: health unit coordinator II-XII nml as tested, alert, normal mood/affect, oriented x 3 Skin Exam: normal color Comments: Vital Signs - 24 hr 12/11/20 12/11/20 12/11/20 15:59 16:04 16:46 Temperature 97.2 F L Pulse Rate [ 81 74 Right Brachial] Respiratory 32 H 32 H 20 Rate Blood Pressure 126/85 107/80 [Right Arm] O2 Sat by Pulse 100 99 Oximetry Progress - Progress Progress: 12/11/20 18:21 The patient is a 35-year-old female presented emergency room secondary to acute onset shortness of breath in the presence of a known coronavirus infection. Secondary to elevated D-dimer and symptoms, the patient underwent a CT angiogram of the chest not showing any definitive pulmonary embolus. Given the risk factors however the patient is going to be placed on 3 weeks of Eliquis. She needs to take precautions appropriately. Additionally the patient is going to be placed on 5 days of oral azithromycin and oral prednisone. She does need to continue to isolate for at least for 5 days after symptoms resolved. Vital signs are stable and oxygen saturation is excellent. ER warnings are given. Anxiety may have contributed further tonight to her symptoms. jeb cleary [id number] - Results/Orders Results/Orders: Laboratory Tests 12/11/20 12/11/20 12/11/20 16:19 16:19 16:19 WBC RBC Hgb Hct MCV MCH MCHC RDW Plt Count MPV Absolute Neuts (auto) Absolute Lymphs (auto) Absolute Monos (auto) Absolute Eos (auto) Absolute Basos (auto) Neutrophils % Lymphocytes % Monocytes % Eosinophils % Basophils % PT 9.9 INR 1.00 PTT (SP) 24.6 D-Dimer, Quantitative 895.0 H* Sodium 137 Potassium 3.5 L Chloride 106 Carbon Dioxide 20 L Anion Gap 14.5 BUN 15 Creatinine 0.70 BUN/Creatinine Ratio 21.4 H Random Glucose 124 H Serum Osmolality 276.1 Lactic Acid 1.5 Calcium 8.9 Magnesium 1.8 Total Bilirubin 0.6 AST 23 ALT 23 Alkaline Phosphatase 59 Creatine Kinase 29 CK-MB (CK-2) 0.6 CK-MB (CK-2) % Not Reportable Troponin I < 0.02 B-Natriuretic Peptide < 15.0 Serum Total Protein 7.7 Albumin 4.2 Globulin 3.5 Albumin/Globulin Ratio 1.2 Serum HCG, Qual 12/11/20 12/11/20 16:19 16:21 WBC 5.2 RBC 4.84 Hgb 13.9 Hct 39.8 MCV 82.3 MCH 28.7 MCHC 34.9 RDW 13.4 Plt Count 257 MPV 7.2 L Absolute Neuts (auto) 3.00 Absolute Lymphs (auto) 1.80 Absolute Monos (auto) 0.30 Absolute Eos (auto) 0.10 Absolute Basos (auto) 0.00 Neutrophils % 57.3 Lymphocytes % 34.6 Monocytes % 6.4 Eosinophils % 1.0 Basophils % 0.7 PT INR PTT (SP) D-Dimer, Quantitative Sodium Potassium Chloride Carbon Dioxide Anion Gap BUN Creatinine BUN/Creatinine Ratio Random Glucose Serum Osmolality Lactic Acid Calcium Magnesium Total Bilirubin AST ALT Alkaline Phosphatase Creatine Kinase CK-MB (CK-2) CK-MB (CK-2) % Troponin I B-Natriuretic Peptide Serum Total Protein Albumin Globulin Albumin/Globulin Ratio Serum HCG, Qual Negative CTA of the chest shows mild posterior inferior infiltrates consistent with coronavirus. No evidence of pulmonary embolus. See report for full details. EKG shows normal sinus rhythm at 76 bpm. Normal axis. Normal R wave progression. No ST segment or T wave changes indicative of acute ischemia. Borderline QT interval. Departure - Departure Clinical Impression: Pneumonia due to COVID-19 virus, Anxiety disorder due to medical condition Dyspnea Qualifiers: Dyspnea type: acute respiratory distress Qualified Code(s): R06.03 - Acute respiratory distress Disposition: Discharge to Home or Self Care Condition: Fair Departure Forms: ED Discharge - Pt. Copy, Patient Portal Self Enrollment Instructions: Coronavirus Disease 2019 (COVID-19) Overview Diet: regular diet Activity: increase activity as tolerated Referrals: JESSICA ADAMS IV INSTRUMENT OPERATOR [Primary Care Provider] - 1-2 Weeks Prescriptions: Azithromycin 500 mg PO DAILY #5 tab Apixaban [Eliquis] 5 mg PO BID #42 tab predniSONE [Prednisone] 20 mg PO DAILY #7 tab Home Medications: Ambulatory Orders Buspirone HCl [Buspirone Hydrochloride] 7.5 mg PO DAILY 07/11/20 Clindamycin HCl 300 mg PO Q6H #40 cap 07/11/20 Cyclobenzaprine HCl [Flexeril] 10 mg PO TID #15 tab 07/11/20 Trazodone HCl [Trazodone Hydrochloride] 50 mg PO DAILY 07/11/20 Azithromycin [Zithromax Z-Adolfo] 250 mg PO DAILY 5 Days #6 tab MDD 500 12/02/20 Apixaban [Eliquis] 5 mg PO BID #42 tab 12/11/20 Azithromycin 500 mg PO DAILY #5 tab 12/11/20 predniSONE [Prednisone] 20 mg PO DAILY #7 tab 12/11/20 Additional Instructions: The patient is a 35-year-old female presented emergency room secondary to acute onset shortness of breath in the presence of a known coronavirus infection. S econdary to elevated D-dimer and symptoms, the patient underwent a CT angiogram of the chest not showing any definitive pulmonary embolus. Given the risk factors however the patient is going to be placed on 3 weeks of Eliquis. She needs to take precautions appropriately. Additionally the patient is going to be placed on 5 days of oral azithromycin and oral prednisone. She does need to continue to isolate for at least for 5 days after symptoms resolved. Vital signs are stable and oxygen saturation is excellent. ER warnings are given. Anxiety may have contributed further tonight to her symptoms.
[2020-12-11 18:34] VITALS: BP 110/81; TEMP 97.6
== END 2020-12-11 18:33 | disposition home or self-care (01) ==
LOC: ER 15:46
DX: U07.1 COVID-19 (principal); J12.82 Pneumonia due to coronavirus disease 2019; F41.9 Anxiety disorder, unspecified; Z87.891 Personal history of nicotine dependence; Z88.0 Allergy status to penicillin; Z88.5 Allergy status to narcotic agent